=== PATIENT | female | born 1985 | race American Indian/Alaskan Native ===

== ENCOUNTER 2018-03-12 18:39 | Inpatient (IN) | payer MEDICARE ==
[2018-03-12] MEDS ORDERED: TORADOL IV ONE (19:52)
[2018-03-12] MEDS ORDERED: NACL 0.9% 1000 ML 1,000 ML IV ONE ×2 (19:52→22:41)
[2018-03-12 19:58] LABS: Basophils % (Auto) 0.3 % (0.0-1.8); Eosinophils # (Auto) 0.2 K/mm3 (0.0-0.4); Eosinophils % (Auto) 1.9 % (0.0-4.3); Hemoglobin 11.9 gm/dl (10.1-14.3); Lymphocytes # (Auto) 2.6 K/mm3 (1.2-5.4); Mean Corpuscular HGB Conc 33 % (30-34); Mean Corpuscular Volume 84 fl (79-97); Monocytes # (Auto) 1.1 K/mm3 (0.0-0.8); Monocytes % (Auto) 9.9 % (0.0-7.3); Platelet Count 242 K/mm3 (140-440); Red Cell Distribution Width 17.5 % (13.2-15.2)
[2018-03-12 20:04] LABS: Bilirubin,Urine NEG (Negative); Blood,Urine SM (Negative); Color,Urine Straw (Yellow); Protein,Urine <15 mg/dL mg/dL (Negative); Urobilinogen,Urine < 2.0 mg/dL (<2.0); WBC,Urine < 1.0 /HPF (0.0-6.0)
--- NOTE | 2018-03-12 20:37 | Emergency Department Report ---
<CUONG REBOLLEDO - Last Filed: 03/12/18 22:40> ED Abdominal Pain HPI - General Chief Complaint: Abdominal Pain Stated Complaint: ABD PAIN/EXTREME Time Seen by Provider: 03/12/18 19:25 Source: patient Mode of arrival: Ambulatory Limitations: No Limitations - History of Present Illness Initial Comments: This is a 22-year-old female nontoxic, well nourished in appearance, no acute signs of distress presents to the ED with c/o of abdominal pain 1 day. Patient denies any nausea or vomiting. Patient describes abdominal pain as cramping and aching with level of 10/10 in epigastric area. Patient denies chest pain, short of breath, fever, chills, headache, stiff neck, numbness or tingling. Patient denies any diarrhea or constipation. Patient denies any recent travels. Patient stated allergies to morphine. PMH includes pancreatitis and hypertension. MD Complaint: abdominal pain -: days(s) (1) Location: diffuse Radiation: none Migration to: no migration Severity: mild Severity scale (0 -10): 3 Quality: cramping, aching Consistency: constant Improves With: nothing Worsens With: nothing Associated Symptoms: denies other symptoms. denies: nausea, vomiting, diarrhea, fever, chills, constipation, dysuria, hematemesis, hematochezia, melena, hematuria, anorexia, syncope - Related Data Home Medications Medication Instructions Recorded Confirmed Last Taken Famotidine 40 mg PO DAILY 03/13/18 03/13/18 03/12/18 07:00 Quetiapine Fumarate [QUEtiapine 400 mg PO HS 03/13/18 03/13/18 03/11/18 21:00 Fumarate] RX: LORazepam [Ativan] 0.5 mg PO TID PRN 03/13/18 03/13/18 03/12/18 07:00 RX: Triamterene/Hydrochlorothiazid 1 tab PO DAILY 03/13/18 03/13/18 03/12/18 07:00 [Triamterene-Hctz 37.5-25 mg Tb] RX: lamoTRIgine [LaMICtal] 100 mg PO DAILY 03/13/18 03/13/18 03/12/18 07:00 Allergies Allergy/AdvReac Type Severity Reaction Status Date / Time morphine AdvReac Unknown Verified 03/12/18 18:54 ED Review of Systems Constitutional: denies: chills, fever Eyes: denies: eye pain, eye discharge, vision change ENT: denies: ear pain, throat pain Respiratory: denies: cough, shortness of breath, wheezing Cardiovascular: denies: chest pain, palpitations Endocrine: no symptoms reported Gastrointestinal: abdominal pain. denies: nausea, vomiting, diarrhea Genitourinary: denies: urgency, dysuria, discharge Musculoskeletal: denies: back pain, joint swelling, arthralgia Skin: denies: rash, lesions Neurological: denies: headache, weakness, paresthesias Psychiatric: denies: anxiety, depression Hematological/Lymphatic: denies: easy bleeding, easy bruising ED Past Medical Hx - Past Medical History Hx Hypertension: Yes - Surgical History Hx Cholecystectomy: Yes Additional Surgical History: x3, hernia repair, bladder, lumbar x3, right knee - Social History Smoking Status: Never Smoker Substance Use Type: Marijuana - Medications Home Medications: Home Medications Medication Instructions Recorded Confirmed Last Taken Type Famotidine 40 mg PO DAILY 03/13/18 03/13/18 03/12/18 07:00 History Quetiapine Fumarate [QUEtiapine 400 mg PO HS 03/13/18 03/13/18 03/11/18 21:00 History Fumarate] RX: LORazepam [Ativan] 0.5 mg PO TID PRN 03/13/18 03/13/18 03/12/18 07:00 History RX: Triamterene/Hydrochlorothiazid 1 tab PO DAILY 03/13/18 03/13/18 03/12/18 07:00 History [Triamterene-Hctz 37.5-25 mg Tb] RX: lamoTRIgine [LaMICtal] 100 mg PO DAILY 03/13/18 03/13/18 03/12/18 07:00 History ED Physical Exam - General Limitations: No Limitations General appearance: alert, in no apparent distress - Head Head exam: Present: atraumatic, normocephalic - Eye Eye exam: Present: normal appearance - Neck Neck exam: Present: normal inspection, full ROM. Absent: tenderness, meningismus, lymphadenopathy - Respiratory Respiratory exam: Present: normal lung sounds bilaterally. Absent: respiratory distress, wheezes, rales, rhonchi, stridor, chest wall tenderness, accessory muscle use, decreased breath sounds, prolonged expiratory - Cardiovascular Cardiovascular Exam: Present: regular rate, normal rhythm, normal heart sounds. Absent: bradycardia, tachycardia, irregular rhythm, systolic murmur, diastolic murmur, rubs, gallop - GI/Abdominal GI/Abdominal exam: Present: soft, tenderness (epigastric), normal bowel sounds. Absent: distended, guarding, rebound, rigid, diminished bowel sounds - Expanded GI/Abdominal Exam Expanded GI/Abdominal exam: Absent: psoas sign, Becerril's sign, Rovsing's sign, tenderness at [place]bur[place]'s Point, ascites - Extremities Exam Extremities exam: Present: normal inspection, full ROM - Back Exam Back exam: Present: normal inspection, full ROM - Neurological Exam Neurological exam: Present: alert, oriented X3 - Psychiatric Psychiatric exam: Present: normal affect, normal mood - Skin Skin exam: Present: warm, dry, intact, normal color. Absent: rash ED Course - Reevaluation(s) Reevaluation #1: 03/12/18 20:40 Patient is speaking in full sentences with no signs of distress noted. - Consultations Consultation #1: 03/12/18 22:40 Patient has been consulted with Dr. Jones (hospitalist) about patient history, physical exam, and labs/CT results and accepts patient to services. ED Medical Decision Making - Lab Data Result diagrams: 03/12/18 19:47 03/12/18 19:47 - Medical Decision Making This is a 32-year-old female that presents with abdominal pain with intractable nausea vomiting. Patient is stable and was examined by me. There is abdominal tenderness. Negative signs of symptoms of appendicitis. Labs obtained with severe elevated lipese. UA obtained. CT with contrast of abdomen obtained and dictated by the radiologist. I called the radiologist again and confirmed that patient has normal pancreas. Patient is notified of the report with no questions noted by the patient. Vital signs are stable prior to admission. Patient was given several doses of pain control and nausea medication the patient is still having vomiting with no pain reduction. Patient to be admitted with Dr. Jones hospitalist. At time of admission, the patient does not seem toxic or ill in appearance. No acute signs of distress noted. Patient agrees to admission treatment plan of care. No further questions noted by the patient. ED Disposition Clinical Impression: Elevated lipase Abdominal pain Qualifiers: Abdominal location: epigastric Qualified Code(s): R10.13 - Epigastric pain Intractable nausea and vomiting Qualifiers: Vomiting type: unspecified Qualified Code(s): R11.2 - Nausea with vomiting, unspecified Disposition: - OP ADMIT IP TO THIS HOSP Is pt being admited?: Yes Condition: Stable <GERRY BETANCOURT - Last Filed: 03/15/18 00:09> ED Review of Systems ROS: Stated complaint: ABD PAIN/EXTREME Other details as noted in HPI ED Course Vital Signs 03/12/18 03/13/18 03/13/18 18:54 00:32 03:05 Temperature 98.6 F Pulse Rate 86 62 Respiratory 18 16 18 Rate Blood Pressure 111/70 Blood Pressure 105/72 [Right] O2 Sat by Pulse 98 100 Oximetry 03/13/18 03:35 Temperature Pulse Rate Respiratory 18 Rate Blood Pressure Blood Pressure [Right] O2 Sat by Pulse Oximetry ED Medical Decision Making - Lab Data Result diagrams: 03/12/18 19:47 03/13/18 07:30 - Medical Decision Making I called the lab to confirm lipase level. It is over 1205 Critical care attestation.: If time is entered above; I have spent that time in minutes in the direct care of this critically ill patient, excluding procedure time. ED Disposition Is pt being admited?: Yes
[2018-03-12 20:45] LABS: Alanine Aminotransferase 18 units/L (7-56); Albumin 4.3 g/dL (3.9-5); BUN/Creatinine Ratio 7; Blood Urea Nitrogen 6 mg/dL (7-17); Hemolysis Index 0
[2018-03-12] MEDS ORDERED: ZOFRAN IV ONE (20:46)
[2018-03-12] MEDS ORDERED: K-DUR PO ONE (20:47)
[2018-03-12 20:58] LABS: Bilirubin,Direct < 0.2 mg/dL (0-0.2)
[2018-03-12] MEDS ORDERED: DILAUDID IV ONE (21:17)
--- NOTE | 2018-03-12 22:12 | Cat Scan Report ---
FINAL REPORT PROCEDURE: CT ABDOMEN PELVIS W CON TECHNIQUE: Computerized axial tomography of the abdomen and pelvis was performed after the IV inject ion of iodinated nonionic contrast. HISTORY: abd pain COMPARISON: No prior studies are available for comparison. FINDINGS: Visualized lower thorax: No significant abnormality. Liver: Hepatomegaly. No dominant mass or biliary dilatation.. Spleen: Normal size and attenuation. Gallbladder and biliary system: Cholecystectomy clips. Pancreas: Normal. Adrenals: Normal. Kidneys: Normal. There is no hydronephrosis. GI tract: Normal. No dilated loops of large or small bowel. Appendix is normal Lymph nodes and mesentery: Normal. Vasculature: Normal. Bladder: Normal. Reproductive organs: Normal uterus. Peritoneum: Mild free fluid. Musculoskeletal structures: Postoperative change of the spine with fusion at L4-5. Other: None. IMPRESSION: Hepatomegaly. No dominant mass or obstruction.
[2018-03-12] MEDS ORDERED: REGLAN IV ONE (22:16)
[2018-03-12] MEDS ORDERED: TYLENOL PO PRN (23:57)
[2018-03-13] MEDS ORDERED: DILAUDID ONE (02:58)
[2018-03-13] MEDS ORDERED: NACL 0.9% 1000 ML 1,000 ML ONE (02:59)
[2018-03-13] MEDS: NACL 0.9% 1000 ML 1,000 ML IV SCH (03:05)
[2018-03-13] MEDS: DILAUDID IV PRN ×4 (03:05→22:21)
[2018-03-13] MEDS ORDERED: ATIVAN PO PRN (03:50)
--- NOTE | 2018-03-13 04:23 | History and Physical Report ---
CHIEF COMPLAINT: Abdominal pain. HISTORY OF PRESENT ILLNESS: The patient is a 32-year-old female, who has been having abdominal pain going on for about 24-48 hours. Pain is in the epigastric area and radiates to the back and the patient described pain as cramping and aching with the severity of about 10/10. There is history of nausea with no vomiting. There is no history of fever or chills. Also, the patient denies history of chest pain, shortness of breath and also denies history of diarrhea or constipation. States she has had similar symptoms in the past that led to removal of her gallbladder, which she thought would have stopped the pain, but the pain continued to reoccur. PAST MEDICAL HISTORY: Pertinent for hypertension and recurrent pancreatitis. PAST SURGICAL HISTORY: Pertinent for cholecystectomy, C-sections x 3, hernia repair, lumbar vertebral surgery, right knee surgery. FAMILY HISTORY: Noncontributory. SOCIAL HISTORY: The patient does not smoke cigarette, does not drink alcohol. Uses illicit drugs notably marijuana. MEDICATIONS: The patient is on famotidine 40 mg by mouth daily, lorazepam 0.5 mg by mouth 3 times daily as needed for anxiety. The patient is also on quetiapine fumarate 400 mg at bedtime and triamterene /hydrochlorothiazide 37.5/25 one by mouth daily. The patient is also on Lamictal 100 mg by mouth daily. ALLERGIES: THE PATIENT IS ALLERGIC TO MORPHINE. REVIEW OF SYSTEMS: CONSTITUTIONAL: There is no fever, no chills, no diaphoresis. HEENT: There is no headache or sore throat. CARDIOVASCULAR SYSTEM: There is no chest pain or orthopnea. RESPIRATORY SYSTEM: There is no shortness of breath or cough. GASTROINTESTINAL SYSTEM: Abdominal pain is present. There is nausea, but no vomiting. There is no diarrhea or constipation. NEUROLOGICAL SYSTEM: There is no numbness, no dizziness, no altered mental status. MUSCULOSKELETAL SYSTEM: There is no joint pain or swelling. DERMATOLOGICAL SYSTEM: There is no skin rash or itching. GENITOURINARY SYSTEM: There is no dysuria, hematuria or flank pain. Rest of system review is normal. PHYSICAL EXAMINATION: GENERAL: At the time of exam, the patient was found to be alert, oriented x 3 and not in acute distress. VITAL SIGNS: At the initial time of presentation showed temperature of 98.6, pulse of 86, respirations 18, blood pressure 111/70, O2 sat of 98% on room air. HEENT: Showed pupils to be equal, round, reactive to light and accommodating. Extraocular muscles are intact. NECK: Supple with no JVD or carotid bruit. CARDIOVASCULAR SYSTEM: Showed normal first and second heart sounds with no gallops or murmurs. RESPIRATORY SYSTEM: Show good air entry on both sides of the lungs with no abnormal breath sounds. GASTROINTESTINAL SYSTEM: Show abdomen to be full, soft with epigastric tenderness with no guarding, no rigidity, no rebound tenderness. Bowel sounds are normal. NEUROLOGICAL SYSTEM: Show no focal deficit. MUSCULOSKELETAL SYSTEM: Show no joint swelling or tenderness. DERMATOLOGICAL SYSTEM: Show no skin rash. GENITOURINARY SYSTEM: Showing no costovertebral angle tenderness. PERTINENT LABORATORY DATA AND IMAGING STUDIES: The patient has CBC done that came back unremarkable. The patient's chemistry showed low sodium level of 3.4 and lipase level was high with a value of greater than 300. The patient's serum test was negative. Urinalysis came back unremarkable. IMAGING STUDIES: The patient has CT of the abdomen and pelvis done with contrast and only shows hepatomegaly, otherwise unremarkable. DIAGNOSES: 1. Recurring pancreatitis. 2. Abdominal pain. 3. Hypokalemia. PLAN OF ACTION: 1. The patient will be admitted to medical floor. 2. The patient will be n.p.o. until pain resolve. 3. The patient will be on IV normal saline at 125 mL an hour. 4. The patient will be on IV Dilaudid 0.5 mg every 4 hours as needed for pain and IV Zofran 4 mg every 8 hours as needed for nausea and vomiting. 5. The patient will be on heparin 5000 units subcutaneous q. 12 hours for DVT prophylaxis and will be on Tylenol 650 mg by mouth every 4 hours for fever and headache. 6. The patient will have basic metabolic panel done in the morning to monitor the potassium level. 7. The patient's home medications will be reconciled and applied as shown in the medication reconciliation section with triamterene/hydrochlorothiazide held as possible cause of recurrent pancreatitis. 8. The patient will have fasting lipid level done in the morning to check for other causes of pancreatitis. JOB# [id number] OCN/NTS MTDD
[2018-03-13 08:15] LABS: BUN/Creatinine Ratio 8; Blood Urea Nitrogen 6 mg/dL (7-17); Calcium 8.1 mg/dL (8.4-10.2); Hemolysis Index 77
[2018-03-13] MEDS: PEPCID PO SCH (11:50)
[2018-03-13] MEDS: ZOFRAN IV PRN ×2 (11:50→22:30)
[2018-03-13] MEDS: LaMICtal PO SCH (11:51)
[2018-03-13] MEDS: HEPARIN SUB-Q SCH ×2 (11:51→22:22)
--- NOTE | 2018-03-13 12:59 | Progress Note ---
Assessment and Plan Assessment and plan: --Acute pancreatitis; nothing by mouth status IV fluids, pain medications and supportive care Patient denies any alcohol use, has history of recurrent pancreatitis Check abdominal ultrasound to rule out gallstone disease --Hypokalemia; replace per protocol and monitor levels --Abdominal pain; CT abdomen and pelvis reviewed Abdominal US --DVT prophylaxis; Lovenox --Morbid obesity; BMI 36.8; weight reduction advised when medically stable Closely monitor the patient and adjust management as needed Plan of care is reviewed for the patient and her nurse History Interval history: Patient seen and examined medical records reviewed Admitted with abdominal pain, evaluation revealed acute pancreatitis Patient feels slightly better still has abdominal pain and nausea vomiting Nothing by mouth status on conservative management Alert awake oriented not in acute distress Vital signs noted Hospitalist Physical - Constitutional Vitals: Temp Pulse Resp BP Pulse Ox 98.3 F 62 20 126/67 100 03/13/18 09:50 03/13/18 00:32 03/13/18 11:50 03/13/18 09:50 03/13/18 00:32 General appearance: Present: no acute distress, well-nourished, obese (morbidly obese) - EENT Eyes: Present: PERRL, EOM intact - Neck Neck: Present: supple, normal ROM - Respiratory Respiratory effort: normal Respiratory: bilateral: diminished, negative: rales, rhonchi, wheezing - Cardiovascular Rhythm: regular Heart Sounds: Present: S1 & S2 - Extremities Extremities: no ischemia, No edema - Abdominal General gastrointestinal: soft, tender (vague tenderness abdomen. No guarding no rigidity), non-distended, normal bowel sounds - Integumentary Integumentary: Present: clear, warm - Psychiatric Psychiatric: appropriate mood/affect, cooperative - Neurologic Neurologic: CNII-XII intact, moves all extremities Results - Labs CBC & Chem 7: 03/12/18 19:47 03/13/18 07:30 Labs: Laboratory Last Values WBC 11.0 K/mm3 (4.5-11.0) 03/12/18 19:47 RBC 4.30 M/mm3 (3.65-5.03) 03/12/18 19:47 Hgb 11.9 gm/dl (10.1-14.3) 03/12/18 19:47 Hct 36.0 % (30.3-42.9) 03/12/18 19:47 MCV 84 fl (79-97) 03/12/18 19:47 MCH 28 pg (28-32) 03/12/18 19:47 MCHC 33 % (30-34) 03/12/18 19:47 RDW 17.5 % (13.2-15.2) H 03/12/18 19:47 Plt Count 242 K/mm3 (140-440) 03/12/18 19:47 Lymph % (Auto) 24.0 % (13.4-35.0) 03/12/18 19:47 [place] % (Auto) 9.9 % (0.0-7.3) H 03/12/18 19:47 Eos % (Auto) 1.9 % (0.0-4.3) 03/12/18 19:47 Baso % (Auto) 0.3 % (0.0-1.8) 03/12/18 19:47 Lymph # 2.6 K/mm3 (1.2-5.4) 03/12/18 19:47 [place] # 1.1 K/mm3 (0.0-0.8) H 03/12/18 19:47 Eos # 0.2 K/mm3 (0.0-0.4) 03/12/18 19:47 Baso # 0.0 K/mm3 (0.0-0.1) 03/12/18 19:47 Seg Neutrophils % 63.9 % (40.0-70.0) 03/12/18 19:47 Seg Neutrophils # 7.0 K/mm3 (1.8-7.7) 03/12/18 19:47 Sodium 140 mmol/L (137-145) 03/13/18 07:30 Potassium 4.4 mmol/L (3.6-5.0) D 03/13/18 07:30 Chloride 104.9 mmol/L (98-107) 03/13/18 07:30 Carbon Dioxide 24 mmol/L (22-30) 03/13/18 07:30 Anion Gap 16 mmol/L 03/13/18 07:30 BUN 6 mg/dL (7-17) L 03/13/18 07:30 Creatinine 0.8 mg/dL (0.7-1.2) 03/13/18 07:30 Estimated GFR > 60 ml/min 03/13/18 07:30 BUN/Creatinine Ratio 8 % 03/13/18 07:30 Glucose 96 mg/dL (65-100) 03/13/18 07:30 Calcium 8.1 mg/dL (8.4-10.2) L 03/13/18 07:30 Total Bilirubin 0.20 mg/dL (0.1-1.2) 03/12/18 19:47 Direct Bilirubin < 0.2 mg/dL (0-0.2) 03/12/18 19:47 Indirect Bilirubin 0.0 mg/dL 03/12/18 19:47 AST 20 units/L (5-40) 03/12/18 19:47 ALT 18 units/L (7-56) 03/12/18 19:47 Alkaline Phosphatase 56 units/L (35-129) 03/12/18 19:47 Total Protein 7.8 g/dL (6.3-8.2) 03/12/18 19:47 Albumin 4.3 g/dL (3.9-5) 03/12/18 19:47 Albumin/Globulin Ratio 1.2 % 03/12/18 19:47 Lipase 1043 units/L (13-60) H 03/13/18 00:18 HCG, Qual Negative (Negative) 03/12/18 19:50 Urine Color Straw (Yellow) 03/12/18 19:30 Urine Turbidity Clear (Clear) 03/12/18 19:30 Urine pH 6.0 (5.0-7.0) 03/12/18 19:30 Ur Specific [place] 1.005 (1.003-1.030) 03/12/18 19:30 Urine Protein <15 mg/dl mg/dL (Negative) 03/12/18 19:30 Urine Glucose (UA) Neg mg/dL (Negative) 03/12/18 19:30 Urine Ketones Neg mg/dL (Negative) 03/12/18 19:30 Urine Blood Sm (Negative) 03/12/18 19:30 Urine Nitrite Neg (Negative) 03/12/18 19:30 Urine Bilirubin Neg (Negative) 03/12/18 19:30 Urine Urobilinogen < 2.0 mg/dL (<2.0) 03/12/18 19:30 Ur Leukocyte Esterase Neg (Negative) 03/12/18 19:30 Urine WBC (Auto) < 1.0 /HPF (0.0-6.0) 03/12/18 19:30 Urine RBC (Auto) 1.0 /HPF (0.0-6.0) 03/12/18 19:30
[2018-03-13] MEDS ORDERED: GLYCERIN ADULT 2 GM PR ONE (22:36)
--- NOTE | 2018-03-13 23:13 | Ultrasound Report ---
FINAL REPORT PROCEDURE: US ABDOMEN COMPLETE TECHNIQUE: Real-time sonography in multiple planes of the abdomen was performed with image documenta tion. CPT 65714 HISTORY: acute pancreatitis COMPARISON: No prior studies are available for comparison. FINDINGS: Liver: Normal size and echotexture with no evidence of cystic or solid mass lesions. Gallbladder: There has been a cholecystectomy.. Intrahepatic bile ducts: Normal caliber . Extrahepatic bile ducts: Normal caliber. Pancreas: Normal as visualized with suboptimal depiction of the pancreatic tail. Aorta: Visualized portions appear normal. IVC: Visualized portions appear normal. RIGHT kidney: Normal echotexture. No focal renal mass, calculus, or hydronephrosis. Length: 10.2cm. LEFT kidney: Normal echotexture. No focal renal mass, calculus, or hydronephrosis . Length: 9.9cm. Spleen: Normal size and echotexture. No focal lesions. Intraperitoneal fluid: None . Other: None . IMPRESSION: There has been a cholecystectomy. Bile ducts are normal in caliber..
[2018-03-14] MEDS: DILAUDID IV PRN ×5 (02:38→21:24)
[2018-03-14] MEDS: NACL 0.9% 1000 ML 1,000 ML IV SCH ×3 (02:38→17:13)
[2018-03-14] MEDS: PEPCID PO SCH (09:28)
[2018-03-14] MEDS: LaMICtal PO SCH (09:28)
[2018-03-14] MEDS: HEPARIN SUB-Q SCH ×2 (09:28→21:26)
[2018-03-14] MEDS: ZOFRAN IV PRN (15:01)
--- NOTE | 2018-03-14 16:10 | Progress Note ---
Assessment and Plan Assessment and plan: --Acute pancreatitis; lipase improved from 1043-661 today Patient's abdominal pain significantly improved, denies nausea vomiting Trial of clear liquids, continue IV fluids and supportive care. Abdominal ultrasound, status post cholecystectomy, no acute findings --Hypokalemia; resolved --Abdominal pain; CT abdomen and pelvis reviewed Abdominal US, no abnormality, --DVT prophylaxis; Lovenox --Morbid obesity; BMI 36.8; weight reduction advised when medically stable Advance diet as tolerated if symptoms improve Plan of care is reviewed with the patient and her nurse History Interval history: Patient seen and examined medical records reviewed No new events reported by the nursing staff Patient complaints of abdominal pain asked for more pain medications Lipase level significantly improved still elevated Alert awake oriented 3 Vital signs noted Hospitalist Physical - Constitutional Vitals: Temp Pulse Resp BP Pulse Ox 98.1 F 56 L 20 128/87 99 03/14/18 13:00 03/14/18 13:00 03/14/18 12:35 03/14/18 13:00 03/14/18 12:35 General appearance: Present: no acute distress, well-nourished, obese (morbidly obese) - EENT Eyes: Present: PERRL, EOM intact - Neck Neck: Present: supple, normal ROM - Respiratory Respiratory effort: normal Respiratory: bilateral: diminished, negative: rales, rhonchi, wheezing - Cardiovascular Rhythm: regular Heart Sounds: Present: S1 & S2 - Extremities Extremities: no ischemia, No edema - Abdominal General gastrointestinal: soft, non-tender, non-distended, normal bowel sounds - Integumentary Integumentary: Present: clear, warm - Psychiatric Psychiatric: appropriate mood/affect, cooperative - Neurologic Neurologic: CNII-XII intact, moves all extremities Results - Labs CBC & Chem 7: 03/12/18 19:47 03/13/18 07:30 Labs: Laboratory Last Values WBC 11.0 K/mm3 (4.5-11.0) 03/12/18 19:47 RBC 4.30 M/mm3 (3.65-5.03) 03/12/18 19:47 Hgb 11.9 gm/dl (10.1-14.3) 03/12/18 19:47 Hct 36.0 % (30.3-42.9) 03/12/18 19:47 MCV 84 fl (79-97) 03/12/18 19:47 MCH 28 pg (28-32) 03/12/18 19:47 MCHC 33 % (30-34) 03/12/18 19:47 RDW 17.5 % (13.2-15.2) H 03/12/18 19:47 Plt Count 242 K/mm3 (140-440) 03/12/18 19:47 Lymph % (Auto) 24.0 % (13.4-35.0) 03/12/18 19:47 [place] % (Auto) 9.9 % (0.0-7.3) H 03/12/18 19:47 Eos % (Auto) 1.9 % (0.0-4.3) 03/12/18 19:47 Baso % (Auto) 0.3 % (0.0-1.8) 03/12/18 19:47 Lymph # 2.6 K/mm3 (1.2-5.4) 03/12/18 19:47 [place] # 1.1 K/mm3 (0.0-0.8) H 03/12/18 19:47 Eos # 0.2 K/mm3 (0.0-0.4) 03/12/18 19:47 Baso # 0.0 K/mm3 (0.0-0.1) 03/12/18 19:47 Seg Neutrophils % 63.9 % (40.0-70.0) 03/12/18 19:47 Seg Neutrophils # 7.0 K/mm3 (1.8-7.7) 03/12/18 19:47 Sodium 140 mmol/L (137-145) 03/13/18 07:30 Potassium 4.4 mmol/L (3.6-5.0) D 03/13/18 07:30 Chloride 104.9 mmol/L (98-107) 03/13/18 07:30 Carbon Dioxide 24 mmol/L (22-30) 03/13/18 07:30 Anion Gap 16 mmol/L 03/13/18 07:30 BUN 6 mg/dL (7-17) L 03/13/18 07:30 Creatinine 0.8 mg/dL (0.7-1.2) 03/13/18 07:30 Estimated GFR > 60 ml/min 03/13/18 07:30 BUN/Creatinine Ratio 8 % 03/13/18 07:30 Glucose 96 mg/dL (65-100) 03/13/18 07:30 Calcium 8.1 mg/dL (8.4-10.2) L 03/13/18 07:30 Total Bilirubin 0.20 mg/dL (0.1-1.2) 03/12/18 19:47 Direct Bilirubin < 0.2 mg/dL (0-0.2) 03/12/18 19:47 Indirect Bilirubin 0.0 mg/dL 03/12/18 19:47 AST 20 units/L (5-40) 03/12/18 19:47 ALT 18 units/L (7-56) 03/12/18 19:47 Alkaline Phosphatase 56 units/L (35-129) 03/12/18 19:47 Total Protein 7.8 g/dL (6.3-8.2) 03/12/18 19:47 Albumin 4.3 g/dL (3.9-5) 03/12/18 19:47 Albumin/Globulin Ratio 1.2 % 03/12/18 19:47 Lipase 661 units/L (13-60) H 03/14/18 07:15 HCG, Qual Negative (Negative) 03/12/18 19:50 Urine Color Straw (Yellow) 03/12/18 19:30 Urine Turbidity Clear (Clear) 03/12/18 19:30 Urine pH 6.0 (5.0-7.0) 03/12/18 19:30 Ur Specific [place] 1.005 (1.003-1.030) 03/12/18 19:30 Urine Protein <15 mg/dl mg/dL (Negative) 03/12/18 19:30 Urine Glucose (UA) Neg mg/dL (Negative) 03/12/18 19:30 Urine Ketones Neg mg/dL (Negative) 03/12/18 19:30 Urine Blood Sm (Negative) 03/12/18 19:30 Urine Nitrite Neg (Negative) 03/12/18 19:30 Urine Bilirubin Neg (Negative) 03/12/18 19:30 Urine Urobilinogen < 2.0 mg/dL (<2.0) 03/12/18 19:30 Ur Leukocyte Esterase Neg (Negative) 03/12/18 19:30 Urine WBC (Auto) < 1.0 /HPF (0.0-6.0) 03/12/18 19:30 Urine RBC (Auto) 1.0 /HPF (0.0-6.0) 03/12/18 19:30
[2018-03-15] MEDS: DILAUDID IV PRN ×4 (03:28→21:02)
[2018-03-15] MEDS: NACL 0.9% 1000 ML 1,000 ML IV SCH ×2 (03:28→11:01)
[2018-03-15] MEDS: LaMICtal PO SCH (09:19)
[2018-03-15] MEDS: PEPCID PO SCH (09:19)
[2018-03-15] MEDS: HEPARIN SUB-Q SCH ×2 (09:20→21:03)
--- NOTE | 2018-03-15 12:40 | Progress Note ---
Assessment and Plan Assessment and plan: --Acute pancreatitis; lipase improved from 1043-661 -420 today[normal range <60] --Patient's abdominal pain significantly improved, denies nausea vomiting Reduce IV fluids and continue clear liquids supportive care. Abdominal ultrasound, status post cholecystectomy, no acute findings --Hypokalemia; resolved --Abdominal pain; resolved CT abdomen and pelvis reviewed Abdominal US, no abnormality, --DVT prophylaxis; Lovenox --Morbid obesity; BMI 36.8; weight reduction advised when medically stable Advance diet as tolerated if symptoms improve Plan of care is reviewed with the patient and her nurse Discharge tomorrow if stable History Interval history: Patient seen and examined medical records reviewed Patient's lipase is trending down Tolerating clear liquids No new complaints Vital signs noted Hospitalist Physical - Constitutional Vitals: Temp Pulse Resp BP Pulse Ox 98.1 F 73 20 130/83 98 03/15/18 06:17 03/15/18 06:17 03/15/18 06:17 03/15/18 06:17 03/15/18 06:17 General appearance: Present: no acute distress, well-nourished, obese (morbidly obese) - EENT Eyes: Present: PERRL, EOM intact - Neck Neck: Present: supple, normal ROM - Respiratory Respiratory effort: normal Respiratory: bilateral: diminished, negative: rales, rhonchi, wheezing - Cardiovascular Rhythm: regular Heart Sounds: Present: S1 & S2 - Extremities Extremities: no ischemia, No edema - Abdominal General gastrointestinal: soft, non-tender, non-distended, normal bowel sounds - Integumentary Integumentary: Present: clear, warm - Psychiatric Psychiatric: appropriate mood/affect, cooperative - Neurologic Neurologic: CNII-XII intact, moves all extremities Results - Labs CBC & Chem 7: 03/12/18 19:47 03/13/18 07:30 Labs: Laboratory Last Values WBC 11.0 K/mm3 (4.5-11.0) 03/12/18 19:47 RBC 4.30 M/mm3 (3.65-5.03) 03/12/18 19:47 Hgb 11.9 gm/dl (10.1-14.3) 03/12/18 19:47 Hct 36.0 % (30.3-42.9) 03/12/18 19:47 MCV 84 fl (79-97) 03/12/18 19:47 MCH 28 pg (28-32) 03/12/18 19:47 MCHC 33 % (30-34) 03/12/18 19:47 RDW 17.5 % (13.2-15.2) H 03/12/18 19:47 Plt Count 242 K/mm3 (140-440) 03/12/18 19:47 Lymph % (Auto) 24.0 % (13.4-35.0) 03/12/18 19:47 [place] % (Auto) 9.9 % (0.0-7.3) H 03/12/18 19:47 Eos % (Auto) 1.9 % (0.0-4.3) 03/12/18 19:47 Baso % (Auto) 0.3 % (0.0-1.8) 03/12/18 19:47 Lymph # 2.6 K/mm3 (1.2-5.4) 03/12/18 19:47 [place] # 1.1 K/mm3 (0.0-0.8) H 03/12/18 19:47 Eos # 0.2 K/mm3 (0.0-0.4) 03/12/18 19:47 Baso # 0.0 K/mm3 (0.0-0.1) 03/12/18 19:47 Seg Neutrophils % 63.9 % (40.0-70.0) 03/12/18 19:47 Seg Neutrophils # 7.0 K/mm3 (1.8-7.7) 03/12/18 19:47 Sodium 140 mmol/L (137-145) 03/13/18 07:30 Potassium 4.4 mmol/L (3.6-5.0) D 03/13/18 07:30 Chloride 104.9 mmol/L (98-107) 03/13/18 07:30 Carbon Dioxide 24 mmol/L (22-30) 03/13/18 07:30 Anion Gap 16 mmol/L 03/13/18 07:30 BUN 6 mg/dL (7-17) L 03/13/18 07:30 Creatinine 0.8 mg/dL (0.7-1.2) 03/13/18 07:30 Estimated GFR > 60 ml/min 03/13/18 07:30 BUN/Creatinine Ratio 8 % 03/13/18 07:30 Glucose 96 mg/dL (65-100) 03/13/18 07:30 Calcium 8.1 mg/dL (8.4-10.2) L 03/13/18 07:30 Total Bilirubin 0.20 mg/dL (0.1-1.2) 03/12/18 19:47 Direct Bilirubin < 0.2 mg/dL (0-0.2) 03/12/18 19:47 Indirect Bilirubin 0.0 mg/dL 03/12/18 19:47 AST 20 units/L (5-40) 03/12/18 19:47 ALT 18 units/L (7-56) 03/12/18 19:47 Alkaline Phosphatase 56 units/L (35-129) 03/12/18 19:47 Total Protein 7.8 g/dL (6.3-8.2) 03/12/18 19:47 Albumin 4.3 g/dL (3.9-5) 03/12/18 19:47 Albumin/Globulin Ratio 1.2 % 03/12/18 19:47 Lipase 420 units/L (13-60) H 03/15/18 06:30 HCG, Qual Negative (Negative) 03/12/18 19:50 Urine Color Straw (Yellow) 03/12/18 19:30 Urine Turbidity Clear (Clear) 03/12/18 19:30 Urine pH 6.0 (5.0-7.0) 03/12/18 19:30 Ur Specific [place] 1.005 (1.003-1.030) 03/12/18 19:30 Urine Protein <15 mg/dl mg/dL (Negative) 03/12/18 19:30 Urine Glucose (UA) Neg mg/dL (Negative) 03/12/18 19:30 Urine Ketones Neg mg/dL (Negative) 03/12/18 19:30 Urine Blood Sm (Negative) 03/12/18 19:30 Urine Nitrite Neg (Negative) 03/12/18 19:30 Urine Bilirubin Neg (Negative) 03/12/18 19:30 Urine Urobilinogen < 2.0 mg/dL (<2.0) 03/12/18 19:30 Ur Leukocyte Esterase Neg (Negative) 03/12/18 19:30 Urine WBC (Auto) < 1.0 /HPF (0.0-6.0) 03/12/18 19:30 Urine RBC (Auto) 1.0 /HPF (0.0-6.0) 03/12/18 19:30
[2018-03-15] MEDS ORDERED: NACL 0.9% 1000 ML 1,000 ML IV SCH (16:00)
[2018-03-16] MEDS: DILAUDID IV PRN (04:42)
[2018-03-16 06:17] VITALS: BP 132/95
[2018-03-16] MEDS ORDERED: PERCOCET 5/325 PO ONE (08:55)
[2018-03-16] MEDS ORDERED: ZOFRAN ODT PO STA (08:57)
[2018-03-16] MEDS: PEPCID PO SCH (10:18)
[2018-03-16] MEDS: HEPARIN SUB-Q SCH (10:21)
[2018-03-16] MEDS: LaMICtal PO SCH (10:21)
--- NOTE | 2018-03-16 13:41 | Discharge Summary ---
Providers - Providers Date of Admission: 03/12/18 23:52 Date of discharge: 03/16/18 Attending physician: ЮЛИЯ BUCKLEY Hospitalization Reason for admission: abdominal pain pain/acute pancreatitis Condition: Stable Pertinent studies: CT abdomen and pelvis; hepatomegaly, no mass or obstruction Abdominal ultrasound; status post cholecystectomy Hospital course: 32-year-old obese female patient with significant past medical history of recurrent pancreatitis hypertension was admitted through emergency room with abdominal pain Initial workup is consistent with severe acute pancreatitis Admitted to the hospital symptomatically managed initially placed nothing by mouth status, as symptoms improved and lipase levels trended down clear liquids were started with advance diet CT abdomen and pelvis no acute abnormalities, abdominal ultrasound status post cholecystectomy Patient's symptoms significantly improved today, patient is comfortable no new complaints Vital signs reviewed, Patient counseled diet modification and exercise as tolerated and weight reduction Patient is hemodynamically and clinically stable at discharge Discharge diagnosis : --Acute pancreatitis; and if continued improvement --Patient's abdominal pain significantly improved, --Hypokalemia; resolved --Obesity; BMI 38.7, advised weight reduction Disposition: DC-30 STILL A PATIENT Time spent for discharge: 35 min Core Measure Documentation - Palliative Care Palliative Care/ Comfort Measures: Not Applicable - Core Measures Any of the following diagnoses?: none Exam - Constitutional Vitals: Temp Pulse Resp BP Pulse Ox 97.7 F 85 24 132/95 100 03/16/18 04:14 03/16/18 04:14 03/16/18 04:14 03/16/18 04:14 03/16/18 04:14 General appearance: Present: no acute distress, well-nourished, obese - EENT Eyes: Present: PERRL, EOM intact - Neck Neck: Present: supple, normal ROM - Respiratory Respiratory effort: normal Respiratory: negative: rales, rhonchi, wheezing - Cardiovascular Rhythm: regular Heart Sounds: Present: S1 & S2 - Extremities Extremities: no ischemia, No edema - Abdominal General gastrointestinal: Present: soft, non-tender, non-distended, normal bowel sounds - Integumentary Integumentary: Present: clear, warm - Musculoskeletal Musculoskeletal: strength equal bilaterally - Psychiatric Psychiatric: appropriate mood/affect, cooperative - Neurologic Neurologic: CNII-XII intact, moves all extremities Plan Activity: no restrictions Diet: other (soft diet advance as tolerated) Additional Instructions: Soft diet and advance as tolerated. No new prescriptions Follow up with: JOSE ESCOBAR [Other] - 3-5 Days Forms: Work/School Release Form Prescriptions: oxyCODONE /ACETAMINOPHEN [Percocet 5/325] 1 tab PO BID PRN #6 tablet PRN Reason: Pain , Severe (7-10)
== END 2018-03-16 16:30 | disposition home or self-care (01) | DRG 640 ==
LOC: ED 18:39 → 3A 23:52
PROVIDERS: ADMIT Internal Medicine; ATTEND Internal Medicine
DX: E87.6 Hypokalemia (principal); K85.90 Acute pancreatitis without necrosis or infection, unspecified; F12.90 Cannabis use, unspecified, uncomplicated; I10 Essential (primary) hypertension; R16.0 Hepatomegaly, not elsewhere classified; E66.01 Morbid (severe) obesity due to excess calories; Z68.38 Body mass index [BMI] 38.0-38.9, adult; Z71.3 Dietary counseling and surveillance; Z90.49 Acquired absence of other specified parts of digestive tract; Z88.5 Allergy status to narcotic agent
CPT/HCPCS: 36415; 74177; 76700; 80048; 80076; 81001; 83690; 84703; 85025; 96361; 96374; 96375; G0378; J1170; J1644; J1885; J2405; J2765; J7030; Q0162; Q9967